=== PATIENT | male | born 1975 | race Caucasian/White ===

== ENCOUNTER 2021-02-25 14:17 | Emergency (ER) | payer OTHER, SELFPAY ==
--- NOTE | 2021-02-25 14:26 | ED.GENADULT ---
HPI - General Adult General Chief complaint: Chest Pain Stated complaint: chest pain Time Seen by Provider: 02/25/21 14:26 Source: patient and RN notes reviewed Mode of arrival: ambulatory Limitations: no limitations History of Present Illness HPI narrative: 45-year-old otherwise healthy male presents to the [facility] with complaints of left-sided chest pain since 03 February. Patient states it has been intermittent. Was at work when it first occurred. States last Monday when he was on a bike ride started having similar left-sided chest pain. Had some today came to [facility] for evaluation. Patient denies any nausea vomiting. Denies any shortness of breath. Describes it as a sharp left-sided chest pain that has gradually and intermittently become worse. Denies any past medical or surgical history. States that he was admitted for a stress test several years ago. Per past medical 2015. Related Data Home Medications Medication Instructions Recorded Confirmed doxycycline hyclate 02/25/21 Allergies Allergy/AdvReac Type Severity Reaction Status Date / Time No Known Allergies Allergy Unverified 09/15/18 10:27 Review of Systems Review of Systems: All systems reviewed & are unremarkable except as noted in HPI and below Constitutional: Constitutional: Reports no additional constitutional complaints, Denies chills and Denies fever(s) Eyes: Eyes: Reports no additional eye complaints and Denies change in vision ENT: Reports system reviewed and no additional complaints, except as documented Cardiovascular: Cardiovascular: Reports chest pain (Left-sided), Denies rapid heart rate, Denies radiating jaw, neck or arm pain and Denies slow heart rate Respiratory: Respiratory: Reports no additional respiratory complaints, Denies cough, Denies dyspnea and Denies wheezing Gastrointestinal: Gastrointestinal: Reports no additional gastrointestinal complaints, Denies abdominal pain, Denies nausea and Denies vomiting Musculoskeletal: Musculoskeletal: Reports no additional musculoskeletal complaints Integumentary/Breasts: Skin/Breast: Reports system reviewed and no additional complaints, except as docu Neurologic: Reports system reviewed and no additional complaints, except as documented Psychiatric: Psychiatric: Reports no additional psychiatric complaints Allergic/Immunologic: Allergic/Immunologic: Reports no additional allergic/immunologic complaints PMF Past Medical History Medical History Rosacea Social History Social History Alcohol intake: current Comments At the time of my signature, I reviewed and agree with the nursing past medical, surgical, social, and family history. There is no relevant family history pertinent to the patient complaint. Exam Const: General: healthy appearing, no acute distress and alert Nutritional Appearance: well nourished Orientation/consciousness: patient oriented x3 Limitations: no limitations HENMT: Head: normal to inspection Ears: external ears normal Eyes: Conjunctivae: conjunctivae normal Pupils: Equal, round and reactive pupils present Neck: Neck: normal visual inspection, no lymphadenopathy and no meningeal signs Chest: Chest palpation & inspection: normal inspection of the chest Resp: Effort & Inspection: normal respiratory effort and no use of accessory muscles Auscultation: clear to auscultation bilaterally, no crackles, no rales, no rhonchi and no wheezes Cardio: Rate: regular rate Rhythm: regular rhythm GI: GI Palp: Yes Soft to palpation and No Tenderness to palpation present (GI) Back/Spine/Pelvis: Back: no CVA tenderness Skin: General skin exam: normal color Rashes: no rashes Wounds: no wounds Neuro: General: patient oriented x3, moves all extremities, no meningeal signs and no focal motor deficits Speech: normal speech Gait exam (Neuro): Normal gait present
[2021-02-25 14:27] VITALS: BP 119/80; PULSE 66; RESP 18; TEMP 36.9; O2SAT 98
--- NOTE | 2021-02-25 14:33 | ECG_ITS ---
Measurements Intervals [place] Rate: 71 P: 81 MI: 186 QRS: 73 QRSD: 104 T: 64 QT: 376 QTc: 410 Interpretive Statements SINUS RHYTHM POSSIBLE LEFT ATRIAL ENLARGEMENT PEAKED T WAVES- CONSIDER HYPERKALEMIA OR ISCHEMIA ABNORMAL ECG Electronically Signed On 02-25-2021 14:47:44 CDT by Everardo Grant D.O.
[2021-02-25] MEDS: ASPIRIN 81 MG CHEWABLE TABLET 324 MG PO (14:38)
== END 2021-02-25 14:45 | disposition short-term general hospital (02) ==
PROVIDERS: Emergency Provider Nurse Practitioner; PCP Family Medicine
DX: R07.9 Chest pain, unspecified (principal); R94.31 Abnormal electrocardiogram [ECG] [EKG]
CPT/HCPCS: 93005; 99213; A9270; G0463

== ENCOUNTER 2021-02-25 15:19 | Emergency (ER) | payer OTHER, SELFPAY ==
--- NOTE | ~2021-02-25 | XR_ITS ---
EXAMINATION: XR chest 2V DATE: 02/25/2021 16:17 INDICATION: Left-sided chest pain TECHNIQUE: PA and lateral views of the chest are obtained. COMPARISON: None available FINDINGS: The lungs are free of acute opacities. There is no pleural effusion or pneumothorax. The ca rdiomediastinal silhouette is normal. There is mild thoracic spondylosis. IMPRESSION: 1. No acute cardiopulmonary abnormality. Reviewed, dictated and finalized at location A.
[2021-02-25 15:49] VITALS: BP 135/72; PULSE 89; RESP 20; TEMP 37.2; O2SAT 98
--- NOTE | 2021-02-25 15:49 | ECG_ITS ---
Measurements Intervals [place] Rate: 77 P: 83 ME: 173 QRS: 63 QRSD: 104 T: 59 QT: 372 QTc: 421 Interpretive Statements SINUS RHYTHM WITH SINUS ARRHYTHMIA POSSIBLE RIGHT ATRIAL ENLARGEMENT LEFT ATRIAL ENLARGEMENT BORDERLINE ECG Electronically Signed On 02-25-2021 17:01:09 CDT by Everardo Grant D.O.
[2021-02-25 16:07] LABS: Basophils Absolute Auto 0.1 K/mm3 (0.0-0.1); Basophils Percent Auto 0.9 % (0.2-1.2); Eosinophils Absolute Auto 0.2 K/mm3 (0-0.3); Eosinophils Percent Auto 3.1 % (0-4.4); Hematocrit 44.8 % (42.0-52.0); Hemoglobin 14.9 g/dL (14.0-18.0); Immature Granulocyte Absolute 0.02 K/mm3 (0.00-0.031); Immature Granulocyte Percent A 0.3 % (0-0.5); Lymphocytes Absolute Auto 0.88 K/mm3 (0.9-3.2); Lymphocytes Percent Auto 15.2 % (18.3-44.2); Mean Corpuscular HGB Conc 33.3 g/dl (32-36); Mean Corpuscular Hemoglobin 31.5 pg (26-34); Mean Corpuscular Volume 94.7 fl (80-100); Mean Platelet Volume 10.2 fl (7.4-10.4); Monocytes Absolute Auto 0.4 K/mm3 (0.1-0.6); Neutrophils Absolute Auto 4.3 K/mm3 (1.3-6.7); Neutrophils Percent Auto 74.5 % (45.5-73.1); Platelet Count Result 162 k/mm3 (150-375); Red Blood Count 4.73 M/mm3 (4.6-6.20); Red Cell Distribution Width 11.9 % (11.5-14.5); White Blood Count 5.8 K/mm3 (4.5-10.0)
[2021-02-25 16:21] LABS: Anion Gap 11 mmol/L (8-16); Blood Urea Nitrogen 16 mg/dL (9-20); Calcium 9.4 mg/dL (8.4-10.2); Carbon Dioxide 24 mmol/L (22-30); Chloride 104 mmol/L (98-107); Estimated CRCL calculation 100 ml/min; Estimated Glomerular Filt Rate > 60; Glucose 108 mg/dL (65-110); Partial Thromboplastin Time 29.6 SECONDS (22.3-36.8); Potassium 4.4 mmol/L (3.4-5.0); Prothrombin Time 12.6 Seconds (11.1-14.7); Sodium 139 mmol/L (137-145)
[2021-02-25 16:35] LABS: Troponin I < 0.012 ng/mL (0.000-0.034)
[2021-02-25 18:32] VITALS: BP 117/82; PULSE 67; RESP 16; O2SAT 98
--- NOTE | 2021-02-25 18:47 | ED.CHESTPAIN ---
HPI - Chest Pain General Chief Complaint: Chest Pain Stated Complaint: mild chest pain Time Seen by Provider: 02/25/21 18:38 Source: patient Mode of arrival: ambulatory Limitations: no limitations History of Present Illness HPI narrative: This is a 45 year old male that presents to the ER for left sided chest pain present intermittently over the last month. Reports he first noted it when he was on set and had to hold a boom over his head all day. Reports it felt like a pulled muscle. He noted it again when he went biking. He has noted the pain intermittently again today which prompted him to be seen. No known alleviating or exacerbating factors. Denies fever, cough, shortness of breath, or lower extremity edema. Related Data Home Medications Medication Instructions Recorded Confirmed doxycycline hyclate 02/25/21 Allergies Allergy/AdvReac Type Severity Reaction Status Date / Time No Known Allergies Allergy Unverified 09/15/18 10:27 Review of Systems Review of Systems: CONSTITUTIONAL: Denies fever CARDIOVASCULAR: Reports chest pain. Denies edema. RESPIRATORY: Denies cough or dyspnea. All systems reviewed & are unremarkable except as noted in HPI and below PMFSH Past Medical History Medical History Rosacea Social History Social History (Updated 02/25/21 @ 18:51 by Latisha Suggs PA-C) Smoking status: Never smoker Alcohol intake: current Exam Narrative: GENERAL: Well-appearing, well-nourished, and in no acute distress. HEAD: Normocephalic, atraumatic. EYES: EOMI. ENT: Mucous membranes moist. Oropharynx without tonsillar hypertrophy exudate or other lesions. NECK: Supple. No adenopathy or masses. No carotid bruits or JVD CHEST: Clear to auscultation. No respiratory distress. No wheezes rales or rhonchi. Pain in the chest with active range of motion of the left shoulder HEART: Regular rate and rhythm. No murmur heard. Normal peripheral pulses. EXTREMITIES: Normal range of motion. No edema. SKIN: Warm, dry, no rash. NEURO: No focal deficits. Alert and oriented x3. PSYCH: Normal mood and affect Course Vital Signs Vital signs: Vital Signs Temperature 98.9 F 02/25/21 15:49 Pulse Rate 89 02/25/21 15:49 Respiratory Rate 20 07/29/21 15:49 Blood Pressure 135/72 02/25/21 15:49 Pulse Oximetry 98 02/25/21 15:49 Temperature 98.9 F 02/25/21 15:49 Pulse Rate 67 02/25/21 18:32 Respiratory Rate 16 02/25/21 18:32 Blood Pressure 117/82 02/25/21 18:32 Pulse Oximetry 98 02/25/21 18:32 MDM - Chest Pain MDM Narrative Medical decision making narrative: Patient presents to the emergency department for intermittent episodes of chest pain noted over the last couple of weeks. Pain does seem to be more musculoskeletal in nature. It is worsened with movement of his left arm. He is afebrile and nontoxic-appearing. His vitals are stable. His heart score is a 1. CBC and metabolic panel without concerning findings. Chest x-ray without concerning changes. EKG without acute ST changes. Baseline and 3-hour troponin are negative. Patient was updated on case findings. He reports improvement with Toradol. He is stable and felt appropriate for further outpatient evaluation. He is to follow-up with his primary care doctor. He was given warnings to return to the ER Lab Data Attestation: I reviewed the patient's lab results. Result diagrams: 02/25/21 15:58 02/25/21 15:58 Labs: Lab Results 02/25/21 02/25/21 02/25/21 Range/Units 15:58 15:58 15:58 WBC 5.8 (4.5-10.0) K/mm3 RBC 4.73 (4.6-6.20) M/mm3 Hgb 14.9 (14.0-18.0) g/dL Hct 44.8 (42.0-52.0) % MCV 94.7 (80-100) fl MCH 31.5 (26-34) pg MCHC 33.3 (32-36) g/dl RDW 11.9 (11.5-14.5) % Plt Count 162 (150-375) k/mm3 MPV 10.2 (7.4-10.4) fl Immature Gran % (Auto) 0.3 (0-0.5) % Neut % (Auto) 74.5 H (45.
[2021-02-25] MEDS: KETOROLAC (*BKC) 60 MG/2 ML VIAL IM (18:59)
--- NOTE | 2021-02-25 19:22 | PC.NURSE ---
Assumed care of pt at this time. Report from Kelley CUEVAS
[2021-02-25 19:51] LABS: Troponin I < 0.012 ng/mL (0.000-0.034)
== END 2021-02-25 20:10 | disposition home or self-care (01) ==
PROVIDERS: Emergency Provider Emergency Medicine; PCP Family Medicine
DX: R07.9 Chest pain, unspecified (principal); R00.0 Tachycardia, unspecified
CPT/HCPCS: 36415; 71046; 80048; 84484; 85025; 85610; 85730; 93005; 96372; 99284; J1885

== ENCOUNTER 2025-07-15 09:32 | Emergency (ER) | payer OTHER, SELFPAY ==
--- NOTE | 2025-07-15 09:38 | ECG_ITS ---
Test Date: 2025-07-15 09:48:27 Measurements Intervals [place] Rate: 65 P: 83 RI: 200 QRS: 72 QRSD: 112 T: 38 QT: 400 QTc: 418 Interpretive Statements SINUS RHYTHM POSSIBLE LEFT ATRIAL ENLARGEMENT BORDERLINE AV CONDUCTION DELAY INTRAVENTRICULAR CONDUCTION DELAY BASELINE ARTIFACT- I, II, AVR, AVF, V1-V4 BORDERLINE ECG No previous ECG available for comparison Electronically Signed On 07-15-2025 10:15:12 [employer]HB[employer] by Everardo Grant D.O.
[2025-07-15 09:42] VITALS: BP 121/71; PULSE 74; RESP 16; TEMP 36.4; O2SAT 99
--- NOTE | 2025-07-15 10:10 | ED.CHESTPAIN ---
HPI - Chest Pain General Chief Complaint: Chest Pain Stated Complaint: Chest Pain Time Seen by Provider: 07/15/25 10:00 Source: patient and RN notes reviewed Mode of arrival: ambulatory Limitations: no limitations History of Present Illness HPI narrative: 50-year-old male patient presents Express Care complaining of chest pain for approximately 1-2 weeks. Patient said he believes it started after he was shoveling snow. Patient says it feels similar to the time when he pulled a muscle a few years ago in his left chest. Patient denies the pain getting worse with exertion reports the pain feels pretty constant reports feeling a dull/aching sensation double not fully go away. Patient denies any pain with inspiration, nausea, vomiting, left arm pain, left jaw pain, difficulty breathing, shortness of breath, any other associated symptoms. Patient taking ibuprofen at relief. Patient denies any significant past medical history. Patient denies any history of hypertension, hyperlipidemia, diabetes, he is a nonsmoker. Patient does report he has a family history from his father of having a heart attack. Related Data Home Medications ?Medication ?Instructions ?Recorded ?Confirmed ?Last Taken ?Type doxycycline hyclate 50 mg capsule 02/25/21 Unknown History Allergies Allergy/AdvReac Type Severity Reaction Status Date / Time No Known Allergies Allergy Unverified 09/15/18 10:27 Review of Systems Review of Systems: CONSTITUTIONAL: Denies fever, chills, or sweats. EYES: Denies visual changes, redness, or discharge. ENT: Denies rhinorrhea, congestion, sore throat, or otalgia. CARDIOVASCULAR: Positive for chest pain. Negative for dizziness, lightheadedness, jaw pain, left arm pain, Palpitations, or edema. RESPIRATORY: Denies cough or dyspnea. GASTROINTESTINAL: Denies abdominal pain, nausea, vomiting, or diarrhea. GENITOURINARY: Denies dysuria or hematuria. SKIN: Denies rash or itching. MUSCULOSKELETAL: Denies back pain, joint pain, or myalgia. NEUROLOGIC: Denies headache, numbness, or weakness. PSYCHIATRIC: Denies anxiety or depression. All other systems reviewed are negative, except as documented in HPI. [facility] Past Medical History Medical History Rosacea Social History Social History (Reviewed 07/15/25 @ 10:13 by GALILEA Rapp Smoking status: Never smoker Alcohol intake: current Comments At the time of my signature, I reviewed and agree with the nursing past medical, surgical, social, and family history. There is no relevant family history pertinent to the patient complaint. Exam Narrative: GENERAL: This is a well-nourished, well-developed adult, in no apparent distress. They are non ill-appearing, nontoxic appearing. HEAD: normocephalic, atraumatic. EYES: Sclera clear/white. Conjunctiva normal. Vision is grossly intact. Extraocular movements intact EARS: External ears normal, Hearing grossly intact. NOSE: External nose normal THROAT: Mucous membranes moist, NECK: Neck supple, non-tender without lymphadenopathy, masses or thyromegaly. CARDIOVASCULAR: Regular rate and rhythm without murmurs, gallops, or rubs. CHEST WALL: Left chest wall tenderness to palpation. Flail chest segment, no paradoxical movements. RESPIRATORY: Clear to auscultation. Breath sounds equal bilaterally. No wheezes, rales, or rhonchi. SKIN: warm, Dry, intact with no suspicious lesions or rash, good texture and turgor. NEURO: awake, alert, and oriented to person, place and time. There were no obvious focal neurologic abnormalities. EXTREMITIES: No joint tenderness, effusion, or edema noted. BACK: Nontender without deformity. Course Course Level of Care: Express Care Visit Vital Signs Vital signs: Vital Signs Temperature 97.5 F L 07/15/25 09:42 Pulse Rate 74 07/15/25 09:42 Respiratory Rate 16 07/15/25 09:42 Blood Pressure 121/71 07/15/25 09:42 Pulse Oximetry 99 07/15/25 09:42 Temperature 97.5 F L 07/15/25 09:42 Pulse Rate 74 07/15/25 09:42 Respiratory Rate 16 07/15/25 09:42 Blood Pressure 121/71 07/15/25 09:42 Pulse Oximetry 99 07/15/25 09:42 Transfer Transfered to: [place] Transportation: Other (Private vehicle) Transfer rationale: Chest pain, patient requires higher level care Accepting physician: Latisha Suggs PA-C [facility] MDM Narrative Medical decision making narrative: EKG sinus rhythm, borderline, no ischemic findings. Appears unchanged compared to EKG in 2020. Chest pain appears reproducible to palpation appears atypical in presentation. For patient your urgent care as limited capabilities for an appropriate cardiac workup. Patient would like to go to the ER for higher level care and peace of mind. Patient like to go to [place] ER. Called over and [place] ER spoke to Latisha Suggs PA-C who is aware this patient accepted the patient for transfer. Patient's vital signs hemodynamically stable, is nontoxic appearing, no apparent distress. Patient to go the ER by private vehicle, patient is stable to drive himself to the hospital via private vehicle. Patient advised to remain NPO proceed immediately to the ER. Differential Diagnosis Differential Diagnosis: Muscle strain, atypical chest pain, unstable angina, unstable angina, acute coronary syndrome, STEMI ECG Data EKG #1: Attestation: I personally reviewed and interpreted this ECG as follows: ECG completion date: 07/15/25 ECG completion time: 09:48 Prior ECG tracings: available for review Interpretation: Borderline, V3 with artifact normal rate, sinus rhythm, no ectopy, no ST changes, normal QRS, normal QT and NL axis Critical Care Time Critical Care Time Critical Care Time: No Discharge Plan Discharge Clinical Impression: Chest pain Qualifiers: Chest pain type: unspecified Qualified Code(s): R07.9 - Chest pain, unspecified Patient Disposition: Acute Care Hospital Condition: Stable Patient Language: Serbian Prescriptions: No Action doxycycline hyclate 50 mg capsule Follow-up/Referrals: PHYSICIAN,TOE FORMER [Primary Care Provider, Internal Medicine] Time of Disposition: 10:10
== END 2025-07-15 10:21 | disposition short-term general hospital (02) ==
DX: R07.9 Chest pain, unspecified (principal); Z82.49 Family history of ischemic heart disease and other diseases of the circulatory system
CPT/HCPCS: 93005; 99213; G0463

== ENCOUNTER 2025-07-15 10:30 | Emergency (ER) | payer OTHER, SELFPAY ==
--- NOTE | ~2025-07-15 | XR_ITS ---
EXAMINATION: XR chest 2V, 07/15/2025 10:55 FORESTRY AID HISTORY: cp X 2 WEEKS COMPARISON: No comparisons available. Technique: 2 views obtained. Findings: The lungs are clear, no effusion. No pneumothorax. Heart is normal size. Mediastinal and hilar contours are within normal limits. Bony thorax no acute abnormality. Impression: No acute cardiopulmonary abnormality. Reviewed, dictated and finalized at location [facility] Impression: No acute cardiopulmonary abnormality.
--- NOTE | 2025-07-15 10:31 | ECG_ITS ---
Test Date: 2025-07-15 10:35:19 Measurements Intervals [place] Rate: 64 P: 80 ID: [id number] QRS: 76 QRSD: 103 T: 81 QT: 394 QTc: 407 Interpretive Statements SINUS RHYTHM BORDERLINE AV CONDUCTION DELAY POSSIBLE LEFT ATRIAL ENLARGEMENT BASELINE ARTIFACT- V1-V4 BORDERLINE ECG Compared to ECG 07/15/2025 09:48:27 NO SIGNIFICANT CHANGE Electronically Signed On 07-15-2025 11:33:16 [employer]NAGER [employer] by Everardo Grant D.O.
[2025-07-15 10:49] VITALS: BP 120/70; PULSE 58; RESP 15; O2SAT 100
[2025-07-15 10:52] LABS: Hematocrit 43.4 % (42.0-52.0); Hemoglobin 14.3 g/dL (14.0-18.0); Immature Granulocyte Percent A 0.0 % (0-0.5); Lymphocytes Absolute Auto 1.26 K/mm3 (0.9-3.2); Mean Corpuscular HGB Conc 32.9 g/dl (32-36); Mean Corpuscular Hemoglobin 32.6 pg (26-34); Mean Corpuscular Volume 99.1 fl (80-100); Nucleated Red Blood Cells Absolute Auto 0.000 K/mm3 (0.0-0.012); Nucleated Red Blood Cells Perc 0.0 % (0.0-0.2); Platelet Count Result 152 k/mm3 (150-375); Red Blood Count 4.38 M/mm3 (4.6-6.20); White Blood Count 4.2 K/mm3 (4.5-10.0)
[2025-07-15 11:06] LABS: INR 1.0; Prothrombin Time 13.8 Seconds (11.1-14.7)
[2025-07-15 11:07] LABS: Partial Thromboplastin Time 30.9 Seconds (22.3-36.8)
[2025-07-15 11:17] LABS: Alanine Aminotransferase 23 U/L (6-50); Albumin Level 4.2 g/dL (3.5-5.1); Alkaline Phosphatase 42 U/L (38-126); Anion Gap 7 mmol/L (4-12); Aspartate Amino Transferase 29 U/L (17-59); Bilirubin,Total 1.7 mg/dL (0.2-1.3); Blood Urea Nitrogen 11 mg/dL (9-20); Calcium 9.0 mg/dL (8.4-10.2); Carbon Dioxide 30 mmol/L (22-30); Chloride 104 mmol/L (98-107); Estimated CRCL calculation 101 ml/min; Estimated Glomerular Filt Rate > 60; Glucose 86 mg/dL (65-110); Lipase 68 U/L (23-300); Potassium 3.9 mmol/L (3.4-5.0); Sodium 141 mmol/L (137-145); Total Protein 7.1 g/dL (6.3-8.2); Troponin I < 0.012 ng/mL (0.000-0.034)
[2025-07-15 11:28] VITALS: PULSE 55; O2SAT 98
[2025-07-15 11:33] VITALS: BP 126/77; PULSE 57; RESP 12; TEMP 36.6; O2SAT 99
[2025-07-15] MEDS: KETOROLAC 15 MG/ML VIAL (*BKC) IV PUSH (11:54)
--- OUTSIDE RECORDS SUMMARY | 2025-07-15 12:23 | XMS_ITS | Clinical Summary ---
Author Organization [facility] Address [address] [place] [id number] Care Team Providers Care Manager Assurance Name Role Phone Vic Anguiano MD Primary Care Provider [phone]- [phone] Angeles Leary Unavailable Allergies No known active allergies Medications doxycycline hyclate (VIBRAMYCIN) 50 mg capsule 01/29/2022 Active Active Problems Problem Noted Date Diagnosed Date Fecal incontinence 08/20/2014 Surgical History Surgery Date Site/Laterality Comments COLONOSCOPY ~2004 Medical History Medical History Date Comments Hemorrhoids Family History Medical History Relation Name Comments No Known Problems Father No Known Problems Mother Brain cancer Other 1 Family history of malignant neoplasm of brain - Relation: Grandmother (Added by TW Conv) Breast cancer Other 2 Family history of malignant neoplasm of breast - Relation: Aunt (Added by TW Conv) Relation Name Status Comments Father Mother Other 1 Other 2 Social History Tobacco Use Types Packs/Day Years Used Date Smoking Tobacco: Never Smokeless Tobacco: Never Personal Safety Answer Date Recorded Getting School Help Needed Not on file 10/14 Sex and Gender Information Value Date Recorded Sex Assigned at Not on file Legal Sex Male 3:32 AM [employer] Gender Identity Male 03/23/2022 10:09 AM CDT Sexual Orientation Straight 03/23/2022 10 :09 AM CDT Last Filed Vital Signs Vital Sign Reading Time Taken Comments Blood Pressure 126/84 06/29/2022 7:23 PM [employer] Pulse 68 06/29/2022 7:23 PM [employer] Temperature 36.7 C (98 F) 06/29/2022 7:23 PM [employer] Respiratory Rate 16 06/29/2022 7:23 PM [employer] Oxygen Saturation 98% 06/29/2022 7:23 PM [employer] Inhaled Oxygen Concentration - - Weight 85.7 kg (189 lb) 06/29/2022 7:23 PM [employer] Height 193 cm (6' 4) 06/29/2022 7:23 PM [employer] Body Mass Index 23.01 06/29/2022 7:23 PM [employer] Plan of Treatment Health Maintenance Due Date Last Done Comments Colon Cancer Screening-Colonoscopy 1975 Depression Screening 1975 Hepatitis C Screening 1975 Prostate Cancer Screening-PSA 1975 Regular Well Visit/Exam 18-64 1993 DTaP/Tdap/Td Vaccine (1 - Tdap) 12/03/2004 12/02/2004 Covid-19 Vaccine (4 - 2024-2 6 season) 2025 06/12/2021, 11/15/2020, 10/22/2020 Influenza Vaccine (#1) 2025 Zoster Vaccine (1 of 2) 2025 Hepatitis B Screening Completed 07/13/2005 , 12/02/2004 Pneumococcal vaccine <65 Aged Out No longer eligible based on patient's age to complete this topic Insurance [facility] [id number] [facility] [id number] Care Teams Manager Assurance Relationship Specialty Start Date End Date Vic Anguiano MD [facility] [place] [address] PCP - General Family Medicine 02/09/22 Angeles Leary PA [address] [place] [id number] [place] [address] Physician Direct Marketing Analyst Colon and Rectal Surgery 02/23/22
--- NOTE | 2025-07-15 13:45 | ED_ITS ---
HPI - Chest Pain General Chief Complaint: Chest Pain Stated Complaint: chest pain Time Seen by Provider: 07/15/25 11:12 History of Present Illness HPI narrative: Patient presenting here with 1-2 weeks now with some chest discomfort, to left side of his chest, he cannot think of anything that could have precipitated this, though he did state that he had shoveled some snow and he thinks he pulled a muscle. No shortness of breath, nausea vomiting, diaphoresis, pain resolved after ibuprofen. No past personal history of any medical issues Related Data Home Medications ?Medication ?Instructions ?Recorded ?Confirmed ?Last Taken ?Type doxycycline hyclate 50 mg capsule 02/25/21 Unknown H istory Allergies Allergy/AdvReac Type Severity Reaction Status Date / Time No Known Allergies Allergy Unverified 09/15/18 10:27 Review of Systems 2 Review of Systems: All systems reviewed & are unremarkable except as noted in HPI and below PMFSH Past Medical History Medical History Rosacea Social History Social History Smoking status: Never smoker Alcohol intake: current Exam 2 Narrative: EXAMINATION OF ORGAN SYSTEMS/BODY AREAS: Constitutional: Vital signs per nursing GENERAL:No acute distress, non-toxic appearing. HEAD: Normal with no signs of head trauma. EYES: EOMI, conjunctiva normal ENT: Hearing grossly intact LUNGS: Nonlabored breathing. Clear to auscultation bilaterally HEART: Regular rate and rhythm ABD: Soft, nontender to palpation EXT: Normal range of motion SKIN: No rashes or lesions. NEURO: Alert. No gross focal sensory or strength deficits. PSYCH: Normal affect Course Vital Signs Vital signs: Vital Signs Pulse Rate 58 L 07/15/25 10:49 Respiratory Rate 15 07/15/25 10:49 Blood Pressure 120/70 07/15/25 10:49 Pulse Oximetry 100 07/15/25 10:49 Temperature 97.8 F 07/15/25 11:33 Pulse Rate 57 L 07/15/25 11:33 Respiratory Rate 12 07/15/25 11:33 Blood Pressure 126/77 07/15/25 11:33 Pulse Oximetry 99 07/15/25 11:33 Oxygen Delivery Room Air 07/15/25 11:28 MDM MDM Narrative Medical decision making narrative: ED COURSE AND MEDICAL DECISION MAKIN-year-old male presenting with chest pain. EKG done in triage negative for acute ischemic changes. Cardiac workup is initiated. EKG: Performed in triage and interpreted by me, many artifact/shaky baseline. Normal sinus rhythm. Rate 64. Normal axis. [place] normal. QRS duration normal. QTc normal. No pathologic Q waves. No ST segment elevation or depression to suggest acute ischemia. No RV strain pattern. HEART score is 0 with no acute ischemic changes on EKG and negative troponin making ACS unlikely. Wells low risk with no DVT symptoms making PE unlikely. Presentation not consistent with dissection or aneurysm without radiation of pain or pulse deficits. CXR negative for mediastinal widening. No abdominal pain or signs of sepsis that would be concerning for esophageal perforation or mediastinitis. No cardiomegaly or JVD to suggest pericardial effusion/tamponade. On repeat evaluation just prior to discharge, the patient is no acute distress. I had a long discussion with the patient and with shared decision making, he is comfortable with outpatient management with Cardiology for likely stress test. He was given clear return instructions by myself in person as well as on discharge paperwork. Differential Diagnosis Differential Diagnosis: ACS, MSK, PE, dissection Lab Data 07/15/25 10:38 07/15/25 10:38 Labs: Lab Results 07/15/25 Range/Units 10:38 WBC 4.2 L (4.5-10.0) K/mm3 RBC 4.38 L (4.6-6.20) M/mm3 Hgb 14.3 (14.0-18.0) g/dL Hct 43.4 (42.0-52.0) % MCV 99.1 (80-100) fl MCH 32.6 (26-34) pg MCHC 32.9 (32-36) g/dl RDW 12.1 (11.5-14.5) % Plt Count 152 (150-375) k/mm3 MPV 10.0 (7.4-10.4) fl Immature Gran % (Auto) 0.0 (0-0.5) % Neut % (Auto) 58.6 (45.5-73.1) % Lymph % (Auto) 30.1 (18.3-44.2) % [place] % (Auto) 8.9 H (2.6-8.5) % Eos % (Auto) 1.7 (0-4.4) % Baso % (Auto) 0.7 (0.2-1.2) % Lymph # (Auto) 1.26 (0.9-3.2) K/mm3 [place] # (Auto) 0.4 (0.1-0.6) K/mm3 Eos # (Auto) 0.1 (0-0.3) K/mm3 Baso # (Auto) 0.0 (0.0-0.1) K/mm3 Abs Immat Gran (auto) 0.00 (0.00-0.031) K/mm3 Absolute Neuts (auto) 2.5 (1.3-6.7) K/mm3 Absolute Nucleated RBC 0.000 (0.0-0.012) K/mm3 Nucleated RBC % 0.0 (0.0-0.2) % PT 13.8 (11.1-14.7) Seconds INR 1.0 APTT 30.9 (22.3-36.8) Seconds Sodium 141 (137-145) mmol/L Potassium 3.9 (3.4-5.0) mmol/L Chloride 104 (98-107) mmol/L Carbon Dioxide 30 (22-30) mmol/L Anion Gap 7 (4-12) mmol/L BUN 11 D (9-20) mg/dL Creatinine 0.94 (0.7-1.3) mg/dL Estim Creat Clear Calc 101 ml/min Estimated GFR > 60 (59 - ) Glucose 86 (65-110) mg/dL Calcium 9.0 (8.4-10.2) mg/dL Total Bilirubin 1.7 H (0.2-1.3) mg/dL AST 29 (17-59) U/L ALT 23 (6-50) U/L Alkaline Phosphatase 42 (38-126) U/L Troponin I < 0.012 (0.000-0.034) ng/mL Total Protein 7.1 (6.3-8.2) g/dL Albumin 4.2 (3.5-5.1) g/dL Lipase 68 (23-300) U/L Imaging Data Radiologist's impression: ITS Impressions Chest X-Ray 07/15/25 11:04 Impression: No acute cardiopulmonary abnormality. Discharge Plan Discharge Clinical Impression: Atypical chest pain Patient Disposition: Home Condition: Stable Instructions: Chest Pain (ED) Additional Instructions: Please follow up with the skimmer reverberatory; you can always return for any further issues especially worsening chest pain, shortness of breath, nausea/vomiting, sweating. Patient Language: Albanian Prescriptions: New methocarbamol 750 mg tablet 750 mg PO TID PRN (Reason: muscle spasm) Qty: 30 0RF No Action doxycycline hyclate 50 mg capsule Follow-up/Referrals: PHYSICIAN,CORRECTIONAL OFFICER LIEUTENANT [Primary Care Provider, Internal Medicine] Jacquie Camacho MD [Physician, Cardiology] - 3 Days
--- OUTSIDE RECORDS SUMMARY | 2025-07-15 14:05 | XMS_ITS | Clinical Summary ---
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 Gender Identity Male 03/23/2022 10:09 AM CDT Sexual Orientation Straight 03/23/2022 10 :09 AM CDT Last Filed Vital Signs Vital Sign Reading Time Taken Comments Blood Pressure 126/84 06/29/2022 7:23 PM CLIMATOLOGY TEACHER Pulse 68 06/29/2022 7:23 PM CLIMATOLOGY TEACHER Temperature 36.7 C (98 F) 06/29/2022 7:23 PM CLIMATOLOGY TEACHER Respiratory Rate 16 06/29/2022 7:23 PM CLIMATOLOGY TEACHER Oxygen Saturation 98% 06/29/2022 7:23 PM CLIMATOLOGY TEACHER Inhaled Oxygen Concentration - - Weight 85.7 kg (189 lb) 06/29/2022 7:23 PM CLIMATOLOGY TEACHER Height 193 cm (6' 4) 06/29/2022 7:23 PM CLIMATOLOGY TEACHER Body Mass Index 23.01 06/29/2022 7:23 PM CLIMATOLOGY TEACHER Plan of Treatment Health Maintenance Due Date [...] patient's age to complete this topic Insurance [facility] [id number] Member Subscriber Plan / Payer (Ef fective 2021-Present) Name:Jose Manuel Leo Member ID:[id number] Relation to Subscriber:Self Name:Jose Manuel Leo Subscriber ID:[id number] Payer ID:[id number] Type:[id number] HMO/PPO Address: M87 CLAIMS [address] [place] [address] [facility] [id number] Member Subscriber Plan / Payer (Ef fective 2021-Present) Name:Jose Manuel Leo Member ID:[id number] Relation to Subscriber:Self Name:Jose Manuel Leo Subscriber ID:[id number] Payer ID:[id number] Type:[id number] HMO/PPO Address: M87 CLAIMS [facility] [id number] [place] [id number] Relationship Specialty Start Date End Date Vic Anguiano MD [facility] [place] [address] PCP - General Family Medicine 02/09/22 Angeles Leary PA [address] [place] [id number] [place] [address] Physician Energy Scheduler Colon and Rectal Surgery 02/23/22
== END 2025-07-15 12:03 | disposition home or self-care (01) ==
PROVIDERS: Emergency Provider Emergency Medicine
DX: R07.89 Other chest pain (principal); R94.31 Abnormal electrocardiogram [ECG] [EKG]
CPT/HCPCS: 36415; 71046; 80053; 83690; 84484; 85025; 85610; 85730; 93005; 96374; 99284; A9270; J1885